=== PATIENT | male | born 1995 | race African-American/Black ===

== ENCOUNTER 2016-10-12 19:48 | Emergency (ER) | payer OTHER ==
[~2016-10-12] VITALS: Ht 182.9 cm; Wt 81.6 kg
--- NOTE | 2016-10-12 20:05 | NUR ---
Andie Franco [employer] REPRESENTATIVE performing MSE at triage room
[2016-10-12 20:17] VITALS: BP_SYST 131
--- NOTE | 2016-10-12 20:24 | NUR ---
Patient to ER bed H2 to gown for evaluation. Side rails up.
--- NOTE | 2016-10-12 20:30 | NUR ---
Patient came to ER C/O "getting sick too often lately" patient would like to be checked out for "kidney failure" because "i drink a lot of protein drinks" Patient denies pain, afebrile, AAOx4, unlabored breathing, no signs of acute distress.
[2016-10-12 20:55] LABS: BILIRUBIN,URINE NEGATIVE (NEGATIVE); BLOOD, URINE NEGATIVE (NEGATIVE); CLARITY/URINE CLEAR (CLEAR); COLOR,URINE YELLOW (YELLOW); GLUCOSE,URINE NEGATIVE (NEGATIVE); KETONES,URINE NEGATIVE (NEGATIVE); LEUKOCYTE ESTERASE ,URINE NEGATIVE (NEGATIVE); NITRITE, URINE NEGATIVE (NEGATIVE); PROTEIN URINE NEGATIVE (NEGATIVE); UROBILINOGEN,URINE 0.2 (0.2-1.0)
[2016-10-12 21:07] LABS: BASOPHILS % (AUTO) 0.6 % (0.0-2.0); EOSINOPHILS # (AUTO) 0.2 K/uL (0.0-0.4); EOSINOPHILS % (AUTO) 3.2 % (0.0-4.0); HEMATOCRIT 42.5 % (36-54); HEMOGLOBIN 14.4 g/dL (14.0-18.0); LYMPHOCYTES # (AUTO) 2.4 K/uL (1.0-5.5); LYMPHOCYTES % (AUTO) 32.2 % (20.5-51.5); MEAN CORPUSCULAR HEMOGLOBIN 31 pg (27-31); MEAN CORPUSCULAR HGB CONC 34 % (32-36); MEAN CORPUSCULAR VOLUME 91 fL (79.0-98.0); MONOCYTES # (AUTO) 0.5 K/uL (0.0-1.0); NEUTROPHILS # (AUTO) 4.3 K/uL (1.8-7.7); PLATELET COUNT (AUTO) 177 K/uL (130-430); RED BLOOD CELL COUNT(AUTO) 4.68 MIL/uL (4.2-6.2); RED CELL DISTRIBUTION WIDTH 11.8 % (9.0-15.0); WHITE BLOOD COUNT (AUTO) 7.4 K/uL (4.5-11.0)
[2016-10-12 21:21] LABS: CALCIUM 8.9 mg/dL (8.4-11.0); CREATININE 1.33 mg/dL (0.55-1.30); POTASSIUM 3.7 mmol/L (3.5-5.1)
[2016-10-12 21:26] LABS: TOTAL BILIRUBIN 0.7 mg/dL (0.0-1.0); TOTAL PROTEIN, SERUM 6.8 g/dL (6.4-8.3)
[2016-10-12 21:30] VITALS: BP_SYST 122
--- NOTE | 2016-10-12 21:30 | NUR ---
Patient given written and verbal discharge instructions and verbalizes understanding. ER INSTRUMENT/CONTROL TECHNICIAN Andie discussed with patient the results and treatment provided. Patient in stable condition. ID arm band removed. Rx of albuterol given. Patient educated on pain management and to follow up with PMD. Pain Scale 0/10. Opportunity for questions provided and answered.
== END 2016-10-12 21:30 | disposition home or self-care (01) ==
LOC: SED 19:48
DX: J45.909 Unspecified asthma, uncomplicated (principal); R03.0 Elevated blood-pressure reading, without diagnosis of hypertension
CPT/HCPCS: 36415; 80053; 81003; 85025; 99284

== ENCOUNTER 2017-12-18 20:00 | Emergency (ER) | payer OTHER ==
[~2017-12-18] VITALS: Ht 182.9 cm; Wt 81.6 kg
[2017-12-18 20:08] VITALS: BP_SYST 138
[2017-12-18] MEDS ORDERED: IBUPROFEN 800 MG TABLET PO ONE (20:45)
[2017-12-18 21:21] VITALS: BP_SYST 138
== END 2017-12-18 21:21 | disposition home or self-care (01) ==
LOC: SED 20:00
DX: S76.312A Strain of muscle, fascia and tendon of the posterior muscle group at thigh level, left thigh, initial encounter (principal); J45.909 Unspecified asthma, uncomplicated; X50.9XXA Other and unspecified overexertion or strenuous movements or postures, initial encounter; Y93.67 Activity, basketball; Y92.89 Other specified places as the place of occurrence of the external cause; Y99.8 Other external cause status
CPT/HCPCS: 73502; 73552; 99284

== ENCOUNTER 2020-10-17 15:12 | Emergency (ER) | payer OTHER ==
[~2020-10-17] VITALS: Ht 182.9 cm; Wt 93.9 kg
[2020-10-17 15:12] VITALS: BP_SYST 125
--- NOTE | 2020-10-17 15:12 | NUR ---
Patient triaged and placed in waiting room. VSS and patient appears in no acute distress at this time. Accompanied by SELF, awaiting available bed, and MD notified of need for MSE.
--- NOTE | 2020-10-17 17:40 | NUR ---
PT WALKING AROUND WAITING ROOM WITHOUT PROBLEMS. PT WITH NO CHANGE
--- NOTE | 2020-10-17 18:41 | NUR ---
Patient left without being seen by md.
== END 2020-10-17 18:41 | disposition left against medical advice (07) ==
LOC: SED 15:12
DX: M54.9 Dorsalgia, unspecified (principal); Z53.21 Procedure and treatment not carried out due to patient leaving prior to being seen by health care provider